=== PATIENT | female | born 1980 | race Caucasian/White ===

== ENCOUNTER → 2022-07-06 | Outpatient (CLI) | payer MEDICARE ==
[2022-07-06 14:06] LABS: BASOPHIL # 0.1 10^3/uL (0.0-0.1); BASOPHIL % 0.9 % (0.0-0.2); EOSINOPHIL # 0.3 10^3/uL (0.0-0.2); EOSINOPHIL % 2.8 % (0.0-5.0); LYMPHOCYTES # 1.45 10^3/uL1 (1.0-4.8); MEAN CORP HGB 25.8 pg (26-34); MONOCYTES # 0.4 10^3/uL (0.3-0.8); MONOCYTES % 4.9 % (5.0-12.0); NEUTROPHIL # 6.8 10^3/uL (1.8-7.7); NEUTROPHILS % 75.4 % (41.0-85.0); PLATELET COUNT 367 10^3/uL (150-400); RED CELL DISTRIBUTION WIDTH 17.3 % (11.5-14.5)
[2022-07-06 14:34] LABS: CARBON DIOXIDE 26.6 mmol/L (20.0-32)
[2022-07-08 18:15] LABS: FOLLICLE STIMULATING HORMONE 3.8 mIU/mL (.)
== END | disposition home or self-care (01) ==
LOC: LAB 12:51
PROVIDERS: ATTEND Internal Medicine
DX: E03.9 Hypothyroidism, unspecified (principal); E10.40 Type 1 diabetes mellitus with diabetic neuropathy, unspecified; E78.5 Hyperlipidemia, unspecified; M35.9 Systemic involvement of connective tissue, unspecified; M45.9 Ankylosing spondylitis of unspecified sites in spine; R82.90 Unspecified abnormal findings in urine; R94.4 Abnormal results of kidney function studies; R94.5 Abnormal results of liver function studies; D51.0 Vitamin B12 deficiency anemia due to intrinsic factor deficiency; N39.0 Urinary tract infection, site not specified; Z79.899 Other long term (current) drug therapy
CPT/HCPCS: 80053; 80061; 80307; 80349; 82306; 82550; 82607; 82670; 82728; 83001; 83036; 83550; 84403; 84436; 84439; 84443; 84480; 84481; 84550; 85025; 85045; 86038; 86140; 86225; 86235; 86256; 86376; 86431